=== PATIENT | male | born 1950 | race African-American/Black ===

== ENCOUNTER 2018-10-12 18:17 | Inpatient (IN) | payer MEDICARE, MEDICAID ==
[~2018-10-12] VITALS: Ht 177.8 cm; Wt 69.1 kg
--- NOTE | 2018-10-12 20:32 | NUR ---
NURSE NOTES: Patient brought into hospital from [facility]. Report taken from POOJA Grey. Admit report taken from EMS, Syd. Patient A&Ox4, on room air. Skin is intact, noted swelling in the Right calf, pain during ambulation. IV site c/d/i and patent. Patient home ventolin taken to pharmacy, Stated that left his other home medication in his vehicle which he currently does not have access too, will call his sister in the am to retrieve other home meds. Patient states that he is homeless, but does have family that he can get help from. Vitals are stable and patient is pleasant. Contacted MD for orders, awaiting response. Continue to monitor. Bed in lowest position, call light within reach.
[2018-10-12 20:40] VITALS: BP 144/89
[2018-10-12] MEDS ORDERED: Norco 5mg/325mg tab ORAL PRN (23:30)
[2018-10-13] VITALS: BP 122/72
[2018-10-13 04:00] VITALS: BP 129/69
--- NOTE | 2018-10-13 07:26 | NUR ---
HAND-OFF: Report given to POOJA Browne.
--- NOTE | 2018-10-13 07:30 | NUR ---
NURSE NOTES: WALKING ROUNDS DONE WITH OUTGOING RN.PATIENT AWAKE IN BED.QUESTIONS ANSWERED;NEEDS MET. DISCUSSED PLAN OF CARE FOR THE DAY. VERBALIZED UNDERSTANDING. CALL LIGHT WITHIN REACH.
[2018-10-13 07:32] LABS: BASOPHILS % (AUTO) 2.2 % (0.0-2.0); EOSINOPHILS % (AUTO) 5.4 % (0.0-3.0); HEMATOCRIT 39.7 % (42.0-52.0); LYMPHOCYTES % (AUTO) 24.5 % (20.0-45.0); MEAN CORPUSCULAR VOLUME 88 FL (80-99); MONOCYTES % (AUTO) 13.6 % (1.0-10.0); NEUTROPHILS % (AUTO) 54.4 % (45.0-75.0); PLATELET COUNT 359 K/UL (150-450); RED CELL DISTRIBUTION WIDTH 11.4 % (11.6-14.8); WHITE BLOOD COUNT 3.7 K/UL (4.8-10.8)
[2018-10-13 07:53] LABS: ALANINE AMINOTRANSFERASE 16 U/L (12-78); ALBUMIN/GLOBULIN RATIO 0.7 (1.0-2.7); ALKALINE PHOSPHATASE 86 U/L (46-116); ANION GAP 7 mmol/L (5-15); ASPARTATE AMINO TRANSFERASE 22 U/L (15-37); BILIRUBIN,TOTAL 0.4 MG/DL (0.2-1.0); BLOOD UREA NITROGEN 13 mg/dL (7-18); CALCIUM 9.1 MG/DL (8.5-10.1); CARBON DIOXIDE 28 MMOL/L (21-32); CHLORIDE 104 MMOL/L (98-107); CREATININE 1.2 MG/DL (0.55-1.30); PHOSPHORUS 3.3 MG/DL (2.5-4.9); SODIUM 139 MMOL/L (136-145)
[2018-10-13 08:00] VITALS: BP 121/75
[2018-10-13] MEDS ORDERED: Enoxaparin 30mg Inj SUBQ SCH (09:00)
[2018-10-13] MEDS ORDERED: Enoxaparin Sodium 300mg/3ml vial SUBQ SCH (11:00)
[2018-10-13 12:00] VITALS: BP 140/98
[2018-10-13] MEDS ORDERED: Promethazine/Codeine 5ml UD ORAL PRN (12:00)
--- NOTE | 2018-10-13 12:04 | Consultation ---
History of Present Illness General Date patient seen: Oct 13, 2018 Present Illness HPI 68 year old male with hx of COPD/asthma presented initially to [facility] with cc of SOB, cough, dyspnea and some discomfort in right calf. Pt was diagnosed to have right calf DVT and [place] [facility] [place]. Allergies: Coded Allergies: NO KNOWN ALLERGIES (Verified Allergy, Unknown, 10/12/18) Patient History Healthcare decision maker Resuscitation status Full Code Advanced Directive on File No Past Medical/Surgical History Past Medical/Surgical History: (1) History of asthma Review of Systems Constitutional: Reports: no symptoms Respiratory: Reports: shortness of breath, wheezing Physical Exam General Appearance: WD/WN, no apparent distress Lines, tubes and drains: peripheral HEENT: normocephalic, atraumatic Neck: non-tender, normal alignment Respiratory/Chest: chest wall non-tender, decreased breath sounds Cardiovascular/Chest: normal peripheral pulses, normal rate Abdomen: normal bowel sounds, non tender Genitourinary/Rectal: normal genital exam Extremities: normal range of motion, non-tender Skin Exam: normal pigmentation 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 Last 24 Hour Vital Signs Date Time Temp Pulse Resp B/P (MAP) Pulse Ox O2 Delivery O2 Flow Rate FiO2 10/13/18 09:00 Room Air 10/13/18 08:00 98.2 94 19 121/75 (90) 94 10/13/18 04:00 98.1 93 17 129/69 (89) 94 10/13/18 00:00 98.2 90 18 122/72 (89) 94 10/12/18 23:46 Room Air 10/12/18 22:12 Room Air 10/12/18 20:40 97.4 94 16 144/89 (107) 96 Intake and Output 10/12/18 10/13/18 19:00 07:00 Intake Total 680 ml Balance 680 ml Intake Oral 480 ml Other 200 ml # Voids 3 Laboratory Tests Test 10/13/18 06:38 White Blood Count 3.7 K/UL (4.8-10.8) L Red Blood Count 4.50 M/UL (4.70-6.10) L Hemoglobin 14.0 G/DL (14.2-18.0) L Hematocrit 39.7 % (42.0-52.0) L Mean Corpuscular Volume 88 FL (80-99) Mean Corpuscular Hemoglobin 31.1 PG (27.0-31.0) H Mean Corpuscular Hemoglobin Concent 35.2 G/DL (32.0-36.0) Red Cell Distribution Width 11.4 % (11.6-14.8) L Platelet Count 359 K/UL (150-450) Mean Platelet Volume 5.7 FL (6.5-10.1) L Neutrophils (%) (Auto) 54.4 % (45.0-75.0) Lymphocytes (%) (Auto) 24.5 % (20.0-45.0) Monocytes (%) (Auto) 13.6 % (1.0-10.0) H Eosinophils (%) (Auto) 5.4 % (0.0-3.0) H Basophils (%) (Auto) 2.2 % (0.0-2.0) H Prothrombin Time 10.5 SEC (9.30-11.50) Prothromb Time International Ratio 1.0 (0.9-1.1) Activated Partial Thromboplast Time 33 SEC (23-33) Sodium Level 139 MMOL/L (136-145) Potassium Level 4.0 MMOL/L (3.5-5.1) Chloride Level 104 MMOL/L (98-107) Carbon Dioxide Level 28 MMOL/L (21-32) Anion Gap 7 mmol/L (5-15) Blood Urea Nitrogen 13 mg/dL (7-18) Creatinine 1.2 MG/DL (0.55-1.30) Estimat Glomerular Filtration Rate > 60 mL/min (>60) Glucose Level 95 MG/DL (74-106) Calcium Level 9.1 MG/DL (8.5-10.1) Phosphorus Level 3.3 MG/DL (2.5-4.9) Magnesium Level 2.0 MG/DL (1.8-2.4) Total Bilirubin 0.4 MG/DL (0.2-1.0) Aspartate Amino Transf (AST/SGOT) 22 U/L (15-37) Alanine Aminotransferase (ALT/SGPT) 16 U/L (12-78) Alkaline Phosphatase 86 U/L (46-116) Total Protein 7.1 G/DL (6.4-8.2) Albumin 3.0 G/DL (3.4-5.0) L Globulin 4.1 g/dL Albumin/Globulin Ratio 0.7 (1.0-2.7) L Height (Feet): 5 Height (Inches): 10.00 Weight (Pounds): 152 Medications Current Medications Medications (Trade) Dose Ordered Sig/Brenda Route PRN Reason Start Time Stop Time Status Last Admin Dose Admin Acetaminophen (Tylenol) 650 mg Q6H PRN ORAL Mild Pain/Temp > 100.5 10/12/18 23:30 11/11/18 23:29 Acetaminophen/ Hydrocodone Bitart ([place] 5/325) 1 tab Q6H PRN ORAL Severe Pain (Pain Scale 7-10) 10/12/18 23:30 10/19/18 23:29 Albuterol/ Ipratropium (Albuterol/ Ipratropium) 3 ml Q6HRT HHN 10/13/18 13:00 10/18/18 12:59 UNV Atorvastatin Calcium (Lipitor) 40 mg BEDTIME ORAL 10/13/18 21:00 11/12/18 20:59 Enoxaparin Sodium (Lovenox) 70 mg Q12HR SUBQ 10/13/18 11:00 11/12/18 10:59 10/13/18 11:08 Promethazine HCl/ Codeine (Phenergan with Codeine) 5 ml Q4H PRN ORAL For Cough 10/13/18 12:00 11/12/18 11:59 UNV Theophylline (Selvin-Dur) 100 mg EVERY 12 HOURS ORAL 10/13/18 21:00 11/12/18 20:59 UNV Assessment/Plan Problem List: (1) Acute asthma exacerbation ICD Codes: J45.901 - Unspecified asthma with (acute) exacerbation SNOMED: 857218080 (2) Acute bronchitis ICD Codes: J20.9 - Acute bronchitis, unspecified SNOMED: 23089226 Assessment/Plan respiratory treatment short course of steroids and abx check sputum on Levonox Jo-Ann Roberts MD Oct 13, 2018 12:04
--- NOTE | 2018-10-13 12:20 | NUR ---
CASE MANAGEMENT: REVIEW 68/M BIBA FROM HOME CC: SOB . RIGHT LEG PAIN. SI: ASTHMA EXACERBATION . ACUTE DVT T 97.4 HR 94 RR 16 BP 114/89 SAT 94% ROOM AIR WBC 3.7 H/H 14.0/39.7 IS: ALBUTEROL HHN X1 LOVENOX SQ X1 INTERQUAL CRITERIA MET: PATIENT ADMITTED TO MED/SURG UNIT 10/12/2018 DCP: PATIENT IS FROM HOME
[2018-10-13] MEDS: Solu-MEDROL 40mg Inj IVP SCH ×3 (14:00→21:17)
[2018-10-13 16:00] VITALS: BP 112/76
--- NOTE | 2018-10-13 17:41 | History & Physical ---
History and Physical History & Physicial Dictated for Int Med-Dr Cruz no. [id number]. Mauyr Hart MD Oct 13, 2018 17:41
--- NOTE | 2018-10-13 18:30 | NUR ---
NURSE NOTES: PATIENT REMAINS STABLE. BILATERAL LEG CIRCUMFERENCE OBTAINED. NOTED LEFT LEG 11 INCHES IN CIRCUMFERENCE. NOTED RIGHT LEG 12 INCHES( 31 CM). PATIENT DENIES PAIN UPON TOUCH. NO REDNESS OR WARMNESS NOTED.
[2018-10-13] MEDS: Albuterol/Ipratropium 3ml neb HHN SCH (19:00)
--- NOTE | 2018-10-13 19:12 | NUR ---
HAND-OFF: Report given to HAILE BRICE RN.
--- NOTE | 2018-10-13 19:15 | NUR ---
NURSE NOTES: Report taken from POOJA Browne. Patient is alert and oriented in bed. On room air, no signs of distress. Does state that he gets some sharp pain when he ambulates, but nothing at rest. He refused his breathing treatment, states that he feels like he does not need them. RN went over risks and benefits of treatment. Vitals are stable. IV site c/d/i. Calf circumference is Right- 31cm and Left 29cm. Continue to monitor. Call light within reach, bed in lowest position.
[2018-10-13] MEDS: Xarelto 15mg tab ORAL SCH (19:28)
[2018-10-13 20:00] VITALS: BP 114/73
[2018-10-13] MEDS: Theophylline ER 100mg ORAL SCH (21:17)
[2018-10-13] MEDS: Atorvastatin 20mg tab ORAL SCH (21:20)
--- NOTE | 2018-10-13 22:29 | History and Physical Report ---
DATE OF ADMISSION: 10/13/2018 CHIEF COMPLAINT: The patient is a 68-year-old -Liber[place] male, presents with complaint of right lower extremity pain and swelling. HISTORY OF PRESENT ILLNESS: Began on 10/10/2018. The patient states he felt like he had a cramp on the right calf. The patient states the pain continued. The patient noticed increased pain and swelling of the right lower extremity. The patient initially presented to [facility] emergency room. The patient was found to have acute deep venous thrombosis of the right popliteal to right posterior tibial vein. The patient is transferred to [facility] for insurance purposes. The patient is admitted with acute deep venous thrombosis of the right calf. PAST MEDICAL HISTORY: Significant for: 1. Asthma. 2. History of prostate cancer, status post radiation therapy. PAST SURGICAL HISTORY: The patient denies. CURRENT MEDICATIONS: The patient denies. ALLERGIES: No known drug allergies. SOCIAL HISTORY: The patient is a . The patient's girlfriend in January of 2018. The patient is currently homeless, living in his car. The patient admits to on and off tobacco use. The patient admits to alcohol use of at least one beer daily. REVIEW OF SYSTEMS: CONSTITUTIONAL: The patient denies weight loss or gain. The patient denies fevers or chills. HEENT: The patient has throat pain. The patient has headache. CARDIOVASCULAR: The patient denies palpitations or chest pain. CHEST: The patient denies wheeze or shortness of breath. ABDOMINAL: The patient denies nausea, vomiting, diarrhea, or constipation. GENITOURINARY: The patient denies dysuria or increased frequency of urination. NEUROMUSCULAR: The patient denies seizures or generalized weakness. The patient does complain of right lower extremity pain and swelling as above. PHYSICAL EXAMINATION: VITAL SIGNS: Temperature 98.2, respirations 18, pulse 90, and blood pressure 122/72. GENERAL: The patient is well-developed and well-nourished -Liberian male, in no apparent distress. HEENT: Eyes, pupils are equal and responsive to light and accommodation. Extraocular movements are intact. NECK: Supple without lymphadenopathy. CHEST: Lungs are clear to auscultation bilaterally without wheezes or rales. CARDIOVASCULAR: Regular rhythm and rate. S1 and S2 are normal without murmurs, rubs, or gallops. ABDOMEN: Soft, nontender, and nondistended with positive bowel sounds. No evidence of hepatosplenomegaly. Currently, no rebound or guarding noted. EXTREMITIES: Right lower extremity is swollen when compared to left. There is no erythema noted. NEUROLOGIC: Cranial nerves II to XII are grossly intact without focal deficits. Motor strength is 5/5 bilaterally. Deep tendon reflexes are 2+ plantar. LABORATORY STUDIES: WBC 5.2, hemoglobin 14.5, hematocrit 40.7, and platelets 409,000. Sodium 137, potassium 4.5, chloride 100, CO2 26, BUN 13, creatinine 1.22, and glucose 96. Venous duplex Doppler of the right lower extremity showed acute deep venous thrombosis from the right popliteal to the right posterior tibial vein. ASSESSMENT: This is a 68-year-old -Liberian male. 1. Right lower extremity pain and swelling. 2. Deep venous thrombosis to the right popliteal to right posterior tibial vein. 3. Asthma. 4. History of prostate cancer. TREATMENT: 1. Deep venous thrombosis of right popliteal to right posterior tibial vein. The patient has been started on Lovenox. This will be transitioned to Xarelto. A Hematology/Oncology consultation has been obtained with Dr. Boswell. 2. History of prostate cancer, status post radiation therapy. 3. Asthma. Continue albuterol metered-dose inhaler two puffs p.o. q.i.d. p.r.n. Maury Hart M.D. DR: LUCY JOB#: [id number] CC:
[2018-10-14] VITALS: BP 107/78
[2018-10-14] MEDS: Albuterol/Ipratropium 3ml neb HHN SCH ×3 (00:38→19:00)
[2018-10-14 04:00] VITALS: BP 110/75
[2018-10-14] MEDS: Solu-MEDROL 40mg Inj IVP SCH ×3 (06:24→21:45)
[2018-10-14 06:25] LABS: BASOPHILS % (AUTO) 1.1 % (0.0-2.0); HEMATOCRIT 41.4 % (42.0-52.0); HEMOGLOBIN 14.6 G/DL (14.2-18.0); LYMPHOCYTES % (AUTO) 12.5 % (20.0-45.0); MEAN CORPUSCULAR VOLUME 89 FL (80-99); MONOCYTES % (AUTO) 6.7 % (1.0-10.0); NEUTROPHILS % (AUTO) 79.7 % (45.0-75.0); PLATELET COUNT 448 K/UL (150-450); RED BLOOD COUNT 4.65 M/UL (4.70-6.10); RED CELL DISTRIBUTION WIDTH 10.9 % (11.6-14.8); WHITE BLOOD COUNT 5.5 K/UL (4.8-10.8)
[2018-10-14 06:54] LABS: ANION GAP 5 mmol/L (5-15); BLOOD UREA NITROGEN 17 mg/dL (7-18); CALCIUM 9.7 MG/DL (8.5-10.1); CARBON DIOXIDE 30 MMOL/L (21-32); CHLORIDE 105 MMOL/L (98-107); CREATININE 1.3 MG/DL (0.55-1.30); POTASSIUM 4.6 MMOL/L (3.5-5.1); SODIUM 140 MMOL/L (136-145)
--- NOTE | 2018-10-14 07:43 | NUR ---
HAND-OFF: Report given to POOJA Hills.
--- NOTE | 2018-10-14 07:53 | NUR ---
NURSE NOTES: Patient is awake and able to verbalize needs. Patient is sitting up in bed and ate 100% of his breakfast. Patient is stable, no s/s distress at this time. Denies pain or SOB. All safety measures provided. Patient is in bed in locked position and call light within reach. WIll continue to monitor.
[2018-10-14 08:00] VITALS: BP 129/75
[2018-10-14] MEDS: Theophylline ER 100mg ORAL SCH ×2 (08:51→20:17)
[2018-10-14] MEDS: Xarelto 15mg tab ORAL SCH ×2 (08:51→18:16)
--- NOTE | 2018-10-14 10:38 | NUR ---
REHAB MED PT NOTE CONSULT RECEIVED, MAXIME COMPLTED, PATIENT WILL BENEFIT FROM SKILLED PT DURING STAY FOR RETURN TO PLOF. RECOMMEND SNF VS PRIOR LOCATION. PLAN OF CARE INITIATED. WESTLEY ANTONIO PT DPT Addendum: 10/14/18 at 1039 by WESTLEY ANTONIO PT Amended: Links added.
[2018-10-14 11:43] VITALS: BP 129/85
--- NOTE | 2018-10-14 12:36 | Internal Med Progress Note ---
Subjective Date of Service: Oct 14, 2018 Physician Name Maury Hart Attending Physician Paras Cruz MD Current Medications Medications (Trade) Dose Ordered Sig/Brenda Route PRN Reason Start Time Stop Time Status Last Admin Dose Admin Acetaminophen (Tylenol) 650 mg Q6H PRN ORAL Mild Pain/Temp > 100.5 10/12/18 23:30 11/11/18 23:29 Acetaminophen/ Hydrocodone Bitart ([place] 5/325) 1 tab Q6H PRN ORAL Severe Pain (Pain Scale 7-10) 10/12/18 23:30 10/19/18 23:29 Albuterol/ Ipratropium (Albuterol/ Ipratropium) 3 ml Q6HRT HHN 10/13/18 13:00 10/18/18 12:59 Atorvastatin Calcium (Lipitor) 40 mg BEDTIME ORAL 10/13/18 21:00 11/12/18 20:59 10/13/18 21:20 Levofloxacin 100 ml @ 100 mls/hr Q24H IVPB 10/13/18 14:00 10/20/18 13:59 10/13/18 14:12 Methylprednisolone Sodium Succinate (Solu-MEDROL) 40 mg EVERY 8 HOURS IVP 10/13/18 14:00 11/12/18 13:59 10/14/18 06:24 Promethazine HCl/ Codeine (Phenergan with Codeine) 5 ml Q4H PRN ORAL For Cough 10/13/18 12:00 11/12/18 11:59 Rivaroxaban (Xarelto) 15 mg BID ORAL 10/13/18 18:30 11/03/18 18:29 10/14/18 08:51 Rivaroxaban (Xarelto) 20 mg DAILY ORAL 11/04/18 09:00 01/27/19 08:59 Theophylline (Selvin-Dur) 100 mg EVERY 12 HOURS ORAL 10/13/18 21:00 11/12/18 20:59 10/14/18 08:51 Allergies: Coded Allergies: NO KNOWN ALLERGIES (Verified Allergy, Unknown, 10/12/18) ROS Limited/Unobtainable: No Constitutional: Reports: no symptoms HEENT: Reports: no symptoms Cardiovascular: Reports: no symptoms Respiratory: Reports: no symptoms Gastrointestinal/Abdominal: Reports: no symptoms, poor appetite Genitourinary: Reports: no symptoms Neurologic/Psychiatric: Reports: no symptoms Subjective 68 YO M admitted with right leg pain. Now acute DVT. Cover for Int Elliot-Dr Cruz. Objective Last Vital Signs Date Time Temp Pulse Resp B/P (MAP) Pulse Ox O2 Delivery O2 Flow Rate FiO2 10/14/18 11:43 97.9 93 20 129/85 (100) 94 10/14/18 08:16 Room Air 10/14/18 00:39 21 Laboratory Tests Test 10/14/18 06:00 White Blood Count 5.5 K/UL (4.8-10.8) Red Blood Count 4.65 M/UL (4.70-6.10) L Hemoglobin 14.6 G/DL (14.2-18.0) Hematocrit 41.4 % (42.0-52.0) L Mean Corpuscular Volume 89 FL (80-99) Mean Corpuscular Hemoglobin 31.4 PG (27.0-31.0) H Mean Corpuscular Hemoglobin Concent 35.2 G/DL (32.0-36.0) Red Cell Distribution Width 10.9 % (11.6-14.8) L Platelet Count 448 K/UL (150-450) Mean Platelet Volume 5.6 FL (6.5-10.1) L Neutrophils (%) (Auto) 79.7 % (45.0-75.0) H Lymphocytes (%) (Auto) 12.5 % (20.0-45.0) L Monocytes (%) (Auto) 6.7 % (1.0-10.0) Eosinophils (%) (Auto) 0.0 % (0.0-3.0) Basophils (%) (Auto) 1.1 % (0.0-2.0) Sodium Level 140 MMOL/L (136-145) Potassium Level 4.6 MMOL/L (3.5-5.1) Chloride Level 105 MMOL/L (98-107) Carbon Dioxide Level 30 MMOL/L (21-32) Anion Gap 5 mmol/L (5-15) Blood Urea Nitrogen 17 mg/dL (7-18) Creatinine 1.3 MG/DL (0.55-1.30) Estimat Glomerular Filtration Rate > 60 mL/min (>60) Glucose Level 140 MG/DL (74-106) H Calcium Level 9.7 MG/DL (8.5-10.1) Intake and Output 10/13/18 10/14/18 18:59 06:59 Intake Total 800 ml Balance 800 ml Intake Oral 800 ml # Voids 3 Objective PHYSICAL EXAMINATION: GENERAL: The patient is well-developed and well-nourished -Singaporean male, in no apparent distress. HEENT: Eyes, pupils are equal and responsive to light and accommodation. Extraocular movements are intact. NECK: Supple without lymphadenopathy. CHEST: Lungs are clear to auscultation bilaterally without wheezes or rales. CARDIOVASCULAR: Regular rhythm and rate. S1 and S2 are normal without murmurs, rubs, or gallops. ABDOMEN: Soft, nontender, and nondistended with positive bowel sounds. No evidence of hepatosplenomegaly. Currently, no rebound or guarding noted. EXTREMITIES: Right lower extremity is swollen when compared to left. There is no erythema noted. NEUROLOGIC: Cranial nerves II to XII are grossly intact without focal deficits. Motor strength is 5/5 bilaterally. Deep tendon reflexes are 2+ plantar. Assessment/Plan Problem List: (1) Prostate cancer Assessment & Plan: S/P radiation tx (2) Leg pain, right (3) Acute thromboembolism of deep veins of right calf Assessment & Plan: D/C lovenox; Continue xarelto (4) Acute asthma exacerbation Assessment & Plan: See pulmonary note. (5) Acute bronchitis Assessment & Plan: Continue levaquin per pulmonary Status: not improved Maury Hart MD Oct 14, 2018 12:36
--- NOTE | 2018-10-14 12:41 | Diagnostic Imaging Report ---
APPROVED REPORT CPT Code: 52427 Present Symptoms Comments: Swelling RIGHT LEG: Venous imaging reveals acute thrombus in the popliteal vein and calf veins (posterior and peroneal tibial). Imaging also reveals patency of the common femoral, and calf vein (anterior tibial). The greater saphenous vein is within normal limits. LEFT LEG: Venous imaging reveals a patent deep venous system. There is no evidence of thrombus within the femoral, popliteal or tibial segments. The greater saphenous vein is also within normal limits. Doppler indicates normal spontaneous flow within these segments. POOJA Browne was notified of abnormal results at 1510 hours.
--- NOTE | 2018-10-14 13:16 | Pulmonology Progress Note ---
Assessment/Plan Problems: (1) Acute asthma exacerbation (2) Acute bronchitis Assessment/Plan improving respiratory treatment check electrolytes pain management check sputum titrate fio2 to sat of 92% Subjective ROS Limited/Unobtainable: No Constitutional: Reports: no symptoms HEENT: Repors: no symptoms Respiratory: Reports: no symptoms Allergies: Coded Allergies: NO KNOWN ALLERGIES (Verified Allergy, Unknown, 10/12/18) Objective Last 24 Hour Vital Signs Date Time Temp Pulse Resp B/P (MAP) Pulse Ox O2 Delivery O2 Flow Rate FiO2 10/14/18 11:43 97.9 93 20 129/85 (100) 94 10/14/18 08:16 Room Air 10/14/18 08:00 98.3 94 18 129/75 (93) 97 10/14/18 07:00 Room Air 21 10/14/18 07:00 Room Air 21 10/14/18 04:00 97.3 88 18 110/75 (87) 95 10/14/18 00:39 Room Air 21 10/14/18 00:38 20 Room Air 21 10/14/18 00:00 97.3 84 18 107/78 (88) 98 10/13/18 21:00 Room Air 10/13/18 20:28 102 20 Room Air 21 10/13/18 20:00 Room Air 21 10/13/18 20:00 97.6 97 18 114/73 (87) 94 10/13/18 20:00 20 Room Air 21 10/13/18 16:00 98.4 91 18 112/76 (88) 96 Intake and Output 10/13/18 10/14/18 18:59 06:59 Intake Total 800 ml Balance 800 ml Intake Oral 800 ml # Voids 3 Objective General Appearance: WD/WN, no apparent distress Lines, tubes and drains: peripheral HEENT: normocephalic, atraumatic Neck: non-tender, normal alignment Respiratory/Chest: chest wall non-tender, decreased breath sounds Cardiovascular/Chest: normal peripheral pulses, normal rate Abdomen: normal bowel sounds, non tender Genitourinary/Rectal: normal genital exam Extremities: normal range of motion, non-tender Skin Exam: normal pigmentation 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 Laboratory Tests 10/14/18 06:00: White Blood Count 5.5, Red Blood Count 4.65L, Hemoglobin 14.6, Hematocrit 41.4L , Mean Corpuscular Volume 89, Mean Corpuscular Hemoglobin 31.4H, Mean Corpuscular Hemoglobin Concent 35.2, Red Cell Distribution Width 10.9L, Platelet Count 448, Mean Platelet Volume 5.6L, Neutrophils (%) (Auto) 79.7H, Lymphocytes (%) (Auto) 12.5L, Monocytes (%) (Auto) 6.7, Eosinophils (%) (Auto) 0.0, Basophils (%) (Auto) 1.1, Sodium Level 140, Potassium Level 4.6, Chloride Level 105, Carbon Dioxide Level 30, Anion Gap 5, Blood Urea Nitrogen 17, Creatinine 1.3, Estimat Glomerular Filtration Rate > 60, Glucose Level 140H, Calcium Level 9.7 Current Medications Medications (Trade) Dose Ordered Sig/Brenda Route PRN Reason Start Time Stop Time Status Last Admin Dose Admin Acetaminophen (Tylenol) 650 mg Q6H PRN ORAL Mild Pain/Temp > 100.5 10/12/18 23:30 11/11/18 23:29 Acetaminophen/ Hydrocodone Bitart ([place] 5/325) 1 tab Q6H PRN ORAL Severe Pain (Pain Scale 7-10) 10/12/18 23:30 10/19/18 23:29 Albuterol/ Ipratropium (Albuterol/ Ipratropium) 3 ml Q6HRT HHN 10/13/18 13:00 10/18/18 12:59 Atorvastatin Calcium (Lipitor) 40 mg BEDTIME ORAL 10/13/18 21:00 11/12/18 20:59 10/13/18 21:20 Levofloxacin 100 ml @ 100 mls/hr Q24H IVPB 10/13/18 14:00 10/20/18 13:59 10/13/18 14:12 Methylprednisolone Sodium Succinate (Solu-MEDROL) 40 mg EVERY 8 HOURS IVP 10/13/18 14:00 11/12/18 13:59 10/14/18 06:24 Promethazine HCl/ Codeine (Phenergan with Codeine) 5 ml Q4H PRN ORAL For Cough 10/13/18 12:00 11/12/18 11:59 Rivaroxaban (Xarelto) 15 mg BID ORAL 10/13/18 18:30 11/03/18 18:29 10/14/18 08:51 Rivaroxaban (Xarelto) 20 mg DAILY ORAL 11/04/18 09:00 01/27/19 08:59 Theophylline (Selvin-Dur) 100 mg EVERY 12 HOURS ORAL 10/13/18 21:00 11/12/18 20:59 10/14/18 08:51 Jo-Ann Roberts MD Oct 14, 2018 13:16
[2018-10-14 16:00] VITALS: BP 127/73
--- NOTE | 2018-10-14 16:31 | NUR ---
Social Service Note MAMTA met with patient to assess for homelessness. Patient is alert, oriented and verbally responsive. Patient states he recently became homeless and has been sleeping in his car for about 5 days prior to admission. Patient states due to the recent passing of his girlfriend and brother he could no longer afford to living in the apartment in which they shared. Patient states he is to proud to stay with his sister Esther [phone] even though she has opened her home to him. Patient's car is currently park at her house. Patient states he receives close to $1000 a month. 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 SW provided patient information on [facility]. SW assisted patient in completing the [facility] referral form for Bridge/interim housing. Referral emailed to [email or web address] and christopher dixon at [facility]. MAMTA received confirmation email was received. MAMTA discussed with Dr. Cruz, possible short term placement. Patient states he had an PMD out of [facility] when he was living in [place] with his girlfriend. Patient [place] open to [place]. Will continue to monitor and assist.
--- NOTE | 2018-10-14 19:31 | NUR ---
HAND-OFF: Report given to Wilfredo PATTON. Patient is stable.
--- NOTE | 2018-10-14 19:45 | NUR ---
NURSE NOTES: Received report from POOJA Zuniga and rounds done. Received pt lying in bed, A&OX4, denies pain, no SOB, no distress noted. IV R AC #20 patent and intact. Bed in low position and locked, side rails up x 2, call light within reach. Will continue to monitor.
[2018-10-14 20:00] VITALS: BP 131/81
[2018-10-14] MEDS: Atorvastatin 20mg tab ORAL SCH (20:17)
--- NOTE | 2018-10-14 21:46 | Consultation ---
History of Present Illness Present Illness HPI 68-year-old -Welsh male, presents with complaint of right lower extremity pain and swelling. the pt has anxiety and insomnia. the pt stated that he has pain and decrease appetite. no si.hi Allergies: Coded Allergies: NO KNOWN ALLERGIES (Verified Allergy, Unknown, 10/12/18) Medication History Scheduled Atorvastatin Calcium* (Lipitor*), 40 MG ORAL BEDTIME Ipratropium/Albuterol Sulfate (DuoNeb 0.5-3(2.5)mg/3ml), 3 ML HHN Q6HRT Levofloxacin* (Levaquin*), 500 MG ORAL DAILY Methylprednisolone (Methylprednisolone*), 4 MG ORAL DIRECTED Rivaroxaban (Xarelto), 15 MG ORAL BID Theophylline (Theodur*), 100 MG ORAL EVERY 12 HOURS Scheduled PRN Acetaminophen* (Acetaminophen 325MG Tablet*), 650 MG ORAL Q6H PRN Hydrocodone Bit/Acetaminophen 5-325* ([place] 5-325*), 1 TAB ORAL Q6H PRN Patient History History Provided By: Patient, Medical Record, PMD Healthcare decision maker Resuscitation status Full Code Advanced Directive on File No Past Medical/Surgical History Past Medical/Surgical History: (1) History of asthma (2) Acute asthma exacerbation (3) Acute bronchitis (4) Prostate cancer (5) Leg pain, right (6) Acute thromboembolism of deep veins of right calf Review of Systems Psychiatric: Reports: prior hx, anxiety, depressed feelings, emotional problems Physical Exam General Appearance: alert, thin Neurologic: oriented x 3, responsive, depressed affect Last 24 Hour Vital Signs Date Time Temp Pulse Resp B/P (MAP) Pulse Ox O2 Delivery O2 Flow Rate FiO2 10/14/18 21:00 Room Air 10/14/18 20:00 98.1 100 19 131/81 (98) 97 10/14/18 19:00 Room Air 21 10/14/18 19:00 Room Air 21 10/14/18 16:00 97.8 91 20 127/73 (91) 100 10/14/18 13:00 Room Air 21 10/14/18 13:00 Room Air 21 10/14/18 11:43 97.9 93 20 129/85 (100) 94 10/14/18 08:16 Room Air 10/14/18 08:00 98.3 94 18 129/75 (93) 97 10/14/18 07:00 Room Air 21 10/14/18 07:00 Room Air 21 10/14/18 04:00 97.3 88 18 110/75 (87) 95 10/14/18 00:39 Room Air 21 10/14/18 00:38 20 Room Air 21 10/14/18 00:00 97.3 84 18 107/78 (88) 98 Intake and Output 10/13/18 10/14/18 19:00 07:00 Intake Total 800 ml Balance 800 ml Intake Oral 800 ml # Voids 3 Laboratory Tests Test 10/14/18 06:00 White Blood Count 5.5 K/UL (4.8-10.8) Red Blood Count 4.65 M/UL (4.70-6.10) L Hemoglobin 14.6 G/DL (14.2-18.0) Hematocrit 41.4 % (42.0-52.0) L Mean Corpuscular Volume 89 FL (80-99) Mean Corpuscular Hemoglobin 31.4 PG (27.0-31.0) H Mean Corpuscular Hemoglobin Concent 35.2 G/DL (32.0-36.0) Red Cell Distribution Width 10.9 % (11.6-14.8) L Platelet Count 448 K/UL (150-450) Mean Platelet Volume 5.6 FL (6.5-10.1) L Neutrophils (%) (Auto) 79.7 % (45.0-75.0) H Lymphocytes (%) (Auto) 12.5 % (20.0-45.0) L Monocytes (%) (Auto) 6.7 % (1.0-10.0) Eosinophils (%) (Auto) 0.0 % (0.0-3.0) Basophils (%) (Auto) 1.1 % (0.0-2.0) Sodium Level 140 MMOL/L (136-145) Potassium Level 4.6 MMOL/L (3.5-5.1) Chloride Level 105 MMOL/L (98-107) Carbon Dioxide Level 30 MMOL/L (21-32) Anion Gap 5 mmol/L (5-15) Blood Urea Nitrogen 17 mg/dL (7-18) Creatinine 1.3 MG/DL (0.55-1.30) Estimat Glomerular Filtration Rate > 60 mL/min (>60) Glucose Level 140 MG/DL (74-106) H Calcium Level 9.7 MG/DL (8.5-10.1) Height (Feet): 5 Height (Inches): 10.00 Weight (Pounds): 152 Medications Current Medications Medications (Trade) Dose Ordered Sig/Brenda Route PRN Reason Start Time Stop Time Status Last Admin Dose Admin Acetaminophen (Tylenol) 650 mg Q6H PRN ORAL Mild Pain/Temp > 100.5 10/12/18 23:30 11/11/18 23:29 Acetaminophen/ Hydrocodone Bitart ([place] 5/325) 1 tab Q6H PRN ORAL Severe Pain (Pain Scale 7-10) 10/12/18 23:30 10/19/18 23:29 Albuterol/ Ipratropium (Albuterol/ Ipratropium) 3 ml Q6HRT HHN 10/13/18 13:00 10/18/18 12:59 Atorvastatin Calcium (Lipitor) 40 mg BEDTIME ORAL 10/13/18 21:00 11/12/18 20:59 10/14/18 20:17 Levofloxacin 100 ml @ 100 mls/hr Q24H IVPB 10/13/18 14:00 10/20/18 13:59 10/14/18 14:25 Methylprednisolone Sodium Succinate (Solu-MEDROL) 40 mg EVERY 8 HOURS IVP 10/13/18 14:00 11/12/18 13:59 10/14/18 14:25 Promethazine HCl/ Codeine (Phenergan with Codeine) 5 ml Q4H PRN ORAL For Cough 10/13/18 12:00 11/12/18 11:59 Rivaroxaban (Xarelto) 15 mg BID ORAL 10/13/18 18:30 11/03/18 18:29 10/14/18 18:16 Rivaroxaban (Xarelto) 20 mg DAILY ORAL 11/04/18 09:00 01/27/19 08:59 Theophylline (Selvin-Dur) 100 mg EVERY 12 HOURS ORAL 10/13/18 21:00 11/12/18 20:59 10/14/18 20:17 Assessment/Plan Assessment/Plan anxiety do insomnia -ativan prn -ambien Naty Alarcon MD Oct 14, 2018 21:46
[2018-10-15] VITALS: BP 113/71
[2018-10-15] MEDS: Albuterol/Ipratropium 3ml neb HHN SCH ×3 (00:07→13:00)
[2018-10-15 04:00] VITALS: BP 136/84
[2018-10-15] MEDS: Solu-MEDROL 40mg Inj IVP SCH ×2 (05:47→13:23)
--- NOTE | 2018-10-15 07:26 | NUR ---
HAND-OFF: Report given to POOJA Fox. Pt in stable condition.
[2018-10-15 07:31] LABS: HEMATOCRIT 38.3 % (42.0-52.0); HEMOGLOBIN 13.5 G/DL (14.2-18.0); MEAN CORPUSCULAR VOLUME 89 FL (80-99); PLATELET COUNT 462 K/UL (150-450); RED CELL DISTRIBUTION WIDTH 11.1 % (11.6-14.8); WHITE BLOOD COUNT 9.9 K/UL (4.8-10.8)
[2018-10-15 07:49] LABS: ANION GAP 8 mmol/L (5-15); BLOOD UREA NITROGEN 15 mg/dL (7-18); CALCIUM 9.1 MG/DL (8.5-10.1); CARBON DIOXIDE 27 MMOL/L (21-32); CHLORIDE 105 MMOL/L (98-107); CREATININE 1.1 MG/DL (0.55-1.30); POTASSIUM 4.1 MMOL/L (3.5-5.1); SODIUM 140 MMOL/L (136-145)
--- NOTE | 2018-10-15 07:51 | NUR ---
RESPIRATORY NOTE: Pt refused resp. breathing tx. RNRuddy notified. pt states he wants to wait until he feels an asthma attack for breathing tx. No resp distress noted when asked and checked. Will follow up during afternoon rounds.
[2018-10-15 08:00] VITALS: BP 133/81
--- NOTE | 2018-10-15 08:00 | NUR ---
NURSE NOTES: Report received from outgoing RN, rounds made. Patient alert, oriented x4, calm/pleasant. Sitting upright in bed. RAC heplock intact. Mild pain to right calf, 3/10, denies need for pain medication at this time. Denies NV, tolerating breakfast. Vitals stable. Respirations even, no SOB, lungs clear, no cough. Call light within reach. Will continue to monitor.
[2018-10-15] MEDS: Xarelto 15mg tab ORAL SCH ×2 (08:16→18:03)
[2018-10-15] MEDS: Theophylline ER 100mg ORAL SCH (08:17)
[2018-10-15 12:00] VITALS: BP 148/92
--- NOTE | 2018-10-15 13:02 | NUR ---
RESPIRATORY NOTE: Pt again refused breathing tx, RN will be notified. No resp distress seen at this time.
--- NOTE | 2018-10-15 14:24 | Pulmonology Progress Note ---
Assessment/Plan Problems: (1) Acute asthma exacerbation (2) Acute bronchitis Assessment/Plan improving respiratory treatment check electrolytes pain management check sputum titrate fio2 to sat of 92% Subjective Allergies: Coded Allergies: NO KNOWN ALLERGIES (Verified Allergy, Unknown, 10/12/18) Objective Last 24 Hour Vital Signs Date Time Temp Pulse Resp B/P (MAP) Pulse Ox O2 Delivery O2 Flow Rate FiO2 10/15/18 13:01 Room Air 21 10/15/18 13:01 Room Air 21 10/15/18 09:00 Room Air 10/15/18 08:00 97.7 93 18 133/81 (98) 97 10/15/18 07:47 84 20 95 Room Air 21 10/15/18 07:47 Room Air 21 10/15/18 04:00 98.4 81 19 136/84 (101) 95 10/15/18 00:07 Room Air 21 10/15/18 00:07 Room Air 21 10/15/18 00:00 97.7 84 18 113/71 (85) 95 10/14/18 21:00 Room Air 10/14/18 20:00 98.1 100 19 131/81 (98) 97 10/14/18 19:00 Room Air 21 10/14/18 19:00 Room Air 21 10/14/18 16:00 97.8 91 20 127/73 (91) 100 Intake and Output 10/14/18 10/15/18 18:59 06:59 Intake Total 1255 ml 200 ml Balance 1255 ml 200 ml Intake Oral 1255 ml 100 ml IV Total 100 ml # Voids 3 Objective General Appearance: WD/WN, no apparent distress Lines, tubes and drains: peripheral HEENT: normocephalic, atraumatic Neck: non-tender, normal alignment Respiratory/Chest: chest wall non-tender, decreased breath sounds Cardiovascular/Chest: normal peripheral pulses, normal rate Abdomen: normal bowel sounds, non tender Genitourinary/Rectal: normal genital exam Extremities: normal range of motion, non-tender Skin Exam: normal pigmentation Neurologic: remelter II-XII grossly normal Microbiology Date/Time Source Procedure Growth Status 10/13/18 15:55 Nasal Nares Left MRSA Culture - Final NO METHICILLIN RESISTANT STAPH AUREUS... Complete 10/13/18 15:55 Rectum VRE Culture - Final NO VANCOMYCIN RESISTANT ENTEROCOCCUS ... Complete Laboratory Tests 10/15/18 06:25: Sodium Level 140, Potassium Level 4.1, Chloride Level 105, Carbon Dioxide Level 27, Anion Gap 8, Blood Urea Nitrogen 15, Creatinine 1.1, Estimat Glomerular Filtration Rate > 60, Glucose Level 111H, Calcium Level 9.1 Current Medications Medications (Trade) Dose Ordered Sig/Brenda Route PRN Reason Start Time Stop Time Status Last Admin Dose Admin Acetaminophen (Tylenol) 650 mg Q6H PRN ORAL Mild Pain/Temp > 100.5 10/12/18 23:30 11/11/18 23:29 Acetaminophen/ Hydrocodone Bitart ([place] 5/325) 1 tab Q6H PRN ORAL Severe Pain (Pain Scale 7-10) 10/12/18 23:30 10/19/18 23:29 Albuterol/ Ipratropium (Albuterol/ Ipratropium) 3 ml Q6HRT HHN 10/13/18 13:00 10/18/18 12:59 Atorvastatin Calcium (Lipitor) 40 mg BEDTIME ORAL 10/13/18 21:00 11/12/18 20:59 10/14/18 20:17 Levofloxacin 100 ml @ 100 mls/hr Q24H IVPB 10/13/18 14:00 10/20/18 13:59 10/15/18 13:23 Methylprednisolone Sodium Succinate (Solu-MEDROL) 40 mg EVERY 8 HOURS IVP 10/13/18 14:00 11/12/18 13:59 10/15/18 13:23 Promethazine HCl/ Codeine (Phenergan with Codeine) 5 ml Q4H PRN ORAL For Cough 10/13/18 12:00 11/12/18 11:59 Rivaroxaban (Xarelto) 15 mg BID ORAL 10/13/18 18:30 11/03/18 18:29 10/15/18 08:16 Rivaroxaban (Xarelto) 20 mg DAILY ORAL 11/04/18 09:00 01/27/19 08:59 Theophylline (Selvin-Dur) 100 mg EVERY 12 HOURS ORAL 10/13/18 21:00 11/12/18 20:59 10/15/18 08:17 Jo-Ann Roberts MD Oct 15, 2018 14:24
[2018-10-15 16:00] VITALS: BP 126/88
--- NOTE | 2018-10-15 16:49 | NUR ---
CASE MANAGEMENT: REVIEW SI: ASTHMA EXACERBATION . ACUTE DVT T 98.4 HR 82 RR 18 BP 148/92 SAT 95% ROOM AIR H/H 13.5/38.3 IS: XARELTO PO QD LIPITOR PO QHS THEOPHYLLINE PO Q12HR SOLU MEDROL IV Q8HR LEVOFLOXACIN PO Q24HR ALBUTEROL HHN Q6HR MED/SURG STATUS DCP: PATIENT IS FROM HOME. PATIENT REFERRED TO REHAB [facility]ENTER
--- NOTE | 2018-10-15 16:52 | NUR ---
CASE MANAGEMENT: DCPNOTE UPON DISCHARGE PATIENT WILL TRANSFER TO [facility] [phone]# 11B PATIENT IN AGREEMENT TO TRANSFER TO THIS FACILITY TRANSPORTATION VIA [facility] [id number] ETA 18:30
[2018-10-15] MEDS ORDERED: Tubing IV Secondary IV ONE (16:58)
[2018-10-15] MEDS ORDERED: NS 500ML ONE (16:58)
[2018-10-15] MEDS ORDERED: MEDROL DOSEPAK4 MG ORAL (17:44)
[2018-10-15] MEDS ORDERED: LEVAQUIN500 MG ORAL (17:44)
[2018-10-15] MEDS ORDERED: THEOPHYLLINE A100 MG ORAL (17:44)
[2018-10-15] MEDS ORDERED: DUONEB 0.5-3(2.53 ML HHN (17:44)
[2018-10-15] MEDS ORDERED: ACETAMINOPHEN325 M1 ORAL (17:44)
[2018-10-15] MEDS ORDERED: NORCO 5-325 TA1 EACH ORAL (17:44)
[2018-10-15] MEDS ORDERED: LIPITOR20 MG ORAL (17:44)
[2018-10-15] MEDS ORDERED: XARELTO15 MG ORAL (17:44)
--- NOTE | 2018-10-15 17:46 | Internal Med Progress Note ---
Subjective Date of Service: Oct 15, 2018 Physician Name Maury Hart Attending Physician Paras Cruz MD Current Medications Medications (Trade) Dose Ordered Sig/Brenda Route PRN Reason Start Time Stop Time Status Last Admin Dose Admin Acetaminophen (Tylenol) 650 mg Q6H PRN ORAL Mild Pain/Temp > 100.5 10/12/18 23:30 11/11/18 23:29 Acetaminophen/ Hydrocodone Bitart ([place] 5/325) 1 tab Q6H PRN ORAL Severe Pain (Pain Scale 7-10) 10/12/18 23:30 10/19/18 23:29 Albuterol/ Ipratropium (Albuterol/ Ipratropium) 3 ml Q6HRT HHN 10/13/18 13:00 10/18/18 12:59 Atorvastatin Calcium (Lipitor) 40 mg BEDTIME ORAL 10/13/18 21:00 11/12/18 20:59 10/14/18 20:17 Levofloxacin 100 ml @ 100 mls/hr Q24H IVPB 10/13/18 14:00 10/20/18 13:59 10/15/18 13:23 Methylprednisolone Sodium Succinate (Solu-MEDROL) 40 mg EVERY 8 HOURS IVP 10/13/18 14:00 11/12/18 13:59 10/15/18 13:23 Promethazine HCl/ Codeine (Phenergan with Codeine) 5 ml Q4H PRN ORAL For Cough 10/13/18 12:00 11/12/18 11:59 Rivaroxaban (Xarelto) 15 mg BID ORAL 10/13/18 18:30 11/03/18 18:29 10/15/18 08:16 Rivaroxaban (Xarelto) 20 mg DAILY ORAL 11/04/18 09:00 01/27/19 08:59 Theophylline (Selvin-Dur) 100 mg EVERY 12 HOURS ORAL 10/13/18 21:00 11/12/18 20:59 10/15/18 08:17 Allergies: Coded Allergies: NO KNOWN ALLERGIES (Verified Allergy, Unknown, 10/12/18) Subjective 68 YO M admitted with right leg pain. Now acute DVT. Cover for Usha Zarate-Dr Cruz. Objective Last Vital Signs Date Time Temp Pulse Resp B/P (MAP) Pulse Ox O2 Delivery O2 Flow Rate FiO2 10/15/18 13:01 Room Air 21 10/15/18 12:00 98.4 82 18 148/92 (110) 95 Laboratory Tests Test 10/15/18 06:25 Sodium Level 140 MMOL/L (136-145) Potassium Level 4.1 MMOL/L (3.5-5.1) Chloride Level 105 MMOL/L (98-107) Carbon Dioxide Level 27 MMOL/L (21-32) Anion Gap 8 mmol/L (5-15) Blood Urea Nitrogen 15 mg/dL (7-18) Creatinine 1.1 MG/DL (0.55-1.30) Estimat Glomerular Filtration Rate > 60 mL/min (>60) Glucose Level 111 MG/DL (74-106) H Calcium Level 9.1 MG/DL (8.5-10.1) Microbiology Date/Time Source Procedure Growth Status 10/13/18 15:55 Nasal Nares Left MRSA Culture - Final NO METHICILLIN RESISTANT STAPH AUREUS... Complete 10/13/18 15:55 Rectum VRE Culture - Final NO VANCOMYCIN RESISTANT ENTEROCOCCUS ... Complete Intake and Output 10/14/18 10/15/18 18:59 06:59 Intake Total 1255 ml 200 ml Balance 1255 ml 200 ml Intake Oral 1255 ml 100 ml IV Total 100 ml # Voids 3 Objective PHYSICAL EXAMINATION: GENERAL: The patient is well-developed and well-nourished -Portuguese male, in no apparent distress. HEENT: Eyes, pupils are equal and responsive to light and accommodation. Extraocular movements are intact. NECK: Supple without lymphadenopathy. CHEST: Lungs are clear to auscultation bilaterally without wheezes or rales. CARDIOVASCULAR: Regular rhythm and rate. S1 and S2 are normal without murmurs, rubs, or gallops. ABDOMEN: Soft, nontender, and nondistended with positive bowel sounds. No evidence of hepatosplenomegaly. Currently, no rebound or guarding noted. EXTREMITIES: Right lower extremity is swollen when compared to left. There is no erythema noted. NEUROLOGIC: Cranial nerves II to XII are grossly intact without focal deficits. Motor strength is 5/5 bilaterally. Deep tendon reflexes are 2+ plantar. Assessment/Plan Problem List: (1) Prostate cancer Assessment & Plan: S/P radiation tx (2) Leg pain, right (3) Acute thromboembolism of deep veins of right calf Assessment & Plan: D/C lovenox; Continue xarelto (4) Acute asthma exacerbation Assessment & Plan: See pulmonary note. (5) Acute bronchitis Assessment & Plan: Continue levaquin per pulmonary Assessment/Plan Discharge to Rehab on [address] today Maury Hart MD Oct 15, 2018 17:46
--- NOTE | 2018-10-15 17:54 | NUR ---
NURSE NOTES: Received order to transfer patient to SNF. RN called at [facility] to give report. s/w Nubia RN. CM arranged transportation to [facility] at 18:30. IV removed prior to d/c. pt is aware and agreed to d/c plan, pt notified sister and given information of the facility. i will f/u as needed.
--- NOTE | 2018-10-15 20:18 | NUR ---
HAND-OFF: Report given to candy PATTON. pt in stable condition. Also given report to [employer], belongings given to them. pt left the floor with no signs of distress or other issues at this time.
--- NOTE | 2018-10-15 22:52 | General Progress Note ---
Assessment/Plan Status: stable Assessment/Plan anxiety do insomnia -ativan prn -ambien prn Subjective Neurologic/Psychiatric: Reports: anxiety, emotional problems Allergies: Coded Allergies: NO KNOWN ALLERGIES (Verified Allergy, Unknown, 10/12/18) Objective Last 24 Hour Vital Signs Date Time Temp Pulse Resp B/P (MAP) Pulse Ox O2 Delivery O2 Flow Rate FiO2 10/15/18 20:09 Room Air 21 10/15/18 20:09 Room Air 21 10/15/18 16:00 97.7 101 18 126/88 (101) 96 10/15/18 13:01 Room Air 21 10/15/18 13:01 Room Air 21 10/15/18 12:00 98.4 82 18 148/92 (110) 95 10/15/18 09:00 Room Air 10/15/18 08:00 97.7 93 18 133/81 (98) 97 10/15/18 07:47 84 20 95 Room Air 21 10/15/18 07:47 Room Air 21 10/15/18 04:00 98.4 81 19 136/84 (101) 95 10/15/18 00:07 Room Air 21 10/15/18 00:07 Room Air 21 10/15/18 00:00 97.7 84 18 113/71 (85) 95 Intake and Output 10/14/18 10/15/18 19:00 07:00 Intake Total 1355 ml 100 ml Balance 1355 ml 100 ml Intake Oral 1255 ml 100 ml IV Total 100 ml # Voids 3 Laboratory Tests 10/15/18 06:25: Sodium Level 140, Potassium Level 4.1, Chloride Level 105, Carbon Dioxide Level 27, Anion Gap 8, Blood Urea Nitrogen 15, Creatinine 1.1, Estimat Glomerular Filtration Rate > 60, Glucose Level 111H, Calcium Level 9.1 Height (Feet): 5 Height (Inches): 10.00 Weight (Pounds): 152 General Appearance: no apparent distress, alert, thin Neurologic: oriented x 3, responsive, depressed affect Naty Otero MD Oct 15, 2018 22:52
--- NOTE | 2018-10-15 22:53 | General Progress Note ---
Assessment/Plan Status: stable, progressing Assessment/Plan anxiety do insomnia -ativan prn -ambien prn Subjective Date patient seen: Oct 14, 2018 Neurologic/Psychiatric: Reports: anxiety, depressed, emotional problems Allergies: Coded Allergies: NO KNOWN ALLERGIES (Verified Allergy, Unknown, 10/12/18) Objective Last 24 Hour Vital Signs Date Time Temp Pulse Resp B/P (MAP) Pulse Ox O2 Delivery O2 Flow Rate FiO2 10/15/18 20:09 Room Air 21 10/15/18 20:09 Room Air 21 10/15/18 16:00 97.7 101 18 126/88 (101) 96 10/15/18 13:01 Room Air 21 10/15/18 13:01 Room Air 21 10/15/18 12:00 98.4 82 18 148/92 (110) 95 10/15/18 09:00 Room Air 10/15/18 08:00 97.7 93 18 133/81 (98) 97 10/15/18 07:47 84 20 95 Room Air 21 10/15/18 07:47 Room Air 21 10/15/18 04:00 98.4 81 19 136/84 (101) 95 10/15/18 00:07 Room Air 21 10/15/18 00:07 Room Air 21 10/15/18 00:00 97.7 84 18 113/71 (85) 95 Intake and Output 10/14/18 10/15/18 19:00 07:00 Intake Total 1355 ml 100 ml Balance 1355 ml 100 ml Intake Oral 1255 ml 100 ml IV Total 100 ml # Voids 3 Laboratory Tests 10/15/18 06:25: Sodium Level 140, Potassium Level 4.1, Chloride Level 105, Carbon Dioxide Level 27, Anion Gap 8, Blood Urea Nitrogen 15, Creatinine 1.1, Estimat Glomerular Filtration Rate > 60, Glucose Level 111H, Calcium Level 9.1 Height (Feet): 5 Height (Inches): 10.00 Weight (Pounds): 152 General Appearance: no apparent distress, alert Neurologic: oriented x 3, responsive Naty Otero MD Oct 15, 2018 22:53
--- NOTE | 2018-10-16 14:05 | Discharge Summary ---
Discharge Summary Discharge Summary _ DATE OF ADMISSION: 10/12/2018 DATE OF DISCHARGE: 10/15/2018 DISCHARGED BY: Dr. Paras Cruz CONSULTANTS: Dr. Jo-Ann Otero BRIEF HOSPITAL COURSE: Patient is a 68-year-old -[place] male, who presented with right lower extremity pain and swelling. Symptoms started on 10/10/2018. Patient stated he felt like he had a cramp on the right calf. He stated the pain continued. The patient noticed increased pain and swelling of the right lower extremity. He initially presented to [facility] emergency room. The patient was found to have acute deep venous thrombosis of the right popliteal to right posterior tibial vein. Patient was then transferred to [facility] for insurance purposes. He has medical history significant for asthma and history of prostate CA, status post radiation therapy. Patient was started on Lovenox. He has history of asthma and was given albuterol. Seen by car shagger. He was started on short course of levofloxacin and Solu-Medrol. Patient had anxiety and insomnia. He was given Ambien and as needed Ativan. Lovenox was discontinued and was started on Xarelto. He was given PT mobility. Patient was eventually discharged to [facility]. FINAL DIAGNOSES: Acute DVT of the right leg Acute asthma exacerbation Acute bronchitis Prostate CA status post radiation therapy Anxiety disorder Insomnia DISPOSITION: Patient was discharged to a SNF. DISCHARGE MEDICATIONS: Refer to Discharge Medication List. I have been assigned to dictate discharge summary on this account, and I was not involved in the patient's management. Emmy Reyes NP Oct 16, 2018 14:05
[2018-11-04] MEDS ORDERED: Xarelto 10mg tab ORAL SCH (09:00)
== END 2018-10-15 20:35 | disposition short-term general hospital (02) | DRG 300 ==
LOC: 3E 21:32
DX: I82.431 Acute embolism and thrombosis of right popliteal vein (principal); J45.901 Unspecified asthma with (acute) exacerbation; I82.441 Acute embolism and thrombosis of right tibial vein; J20.9 Acute bronchitis, unspecified; Z85.46 Personal history of malignant neoplasm of prostate; Z92.3 Personal history of irradiation; F41.9 Anxiety disorder, unspecified; G47.00 Insomnia, unspecified; Z59.0 Homelessness
CPT/HCPCS: 36415; 80048; 80053; 83735; 84100; 85007; 85025; 85610; 85730; 87081; 93970; 94664; J7620

== ENCOUNTER 2018-11-30 14:05 | Emergency (ER) | payer MEDICARE, MEDICAID ==
[~2018-11-30] VITALS: Ht 177.8 cm; Wt 72.6 kg
[~2018-11-30 14:05] MED LIST: ACETAMINOPHEN325 M1 ORAL; DUONEB 0.5-3(2.53 ML HHN; LEVAQUIN500 MG ORAL; LIPITOR20 MG ORAL; MEDROL DOSEPAK4 MG ORAL; NORCO 5-325 TA1 EACH ORAL; THEOPHYLLINE A100 MG ORAL; XARELTO15 MG ORAL
--- NOTE | 2018-11-30 14:17 | NUR ---
ED Nurse Note: Pt came into the Er w/ complaints of right lower leg edema and pain x 2 weeks. Pt is complaning of 5/10 pain. Non radiating. Pt was diagnosed w/ DVT on October and was put on blood thinners. Pt was sent by PCP for further eval to the ER.
[2018-11-30 14:19] VITALS: BP 140/82
--- NOTE | 2018-11-30 15:10 | Emergency Room Report ---
History of Present Illness General Chief Complaint: General Complaint Source: Patient, Medical Record Present Illness HPI This is a very pleasant 68-year-old male who was recently diagnosed with a right DVT. He was in the hospital here and was on a blood thinner. For some reason, he was taken off the blood thinner. He states her sore had gone down but then it came back again for the last 2 weeks. He denies any shortness of breath. He states he has some pain on ambulation. He denies any numbness or tingling. He currently is not on any medication for blood. Allergies: Coded Allergies: NO KNOWN ALLERGIES (Verified Allergy, Unknown, 10/12/18) Patient History Past Medical History: asthma Past Surgical History: none Pertinent Family History: none Nursing Documentation-[facility] Past Medical History: No History, Except For Hx Cardiac Problems: No Hx Asthma: Yes Hx Cancer: Yes Hx Gastrointestinal Problems: No Hx Neurological Problems: No Hx Memory Loss: Yes - short term memory loss Review of Systems All Other Systems: negative except mentioned in HPI Physical Exam Vital Signs Date Time Temp Pulse Resp B/P (MAP) Pulse Ox O2 Delivery O2 Flow Rate FiO2 11/30/18 14:13 97.9 103 18 145/81 95 Room Air 11/30/18 14:19 98 General Appearance: well appearing, no apparent distress Head: normocephalic, atraumatic ENT: hearing grossly normal, normal voice Neck: full range of motion, supple Respiratory: no respiratory distress, speaking full sentences Musculoskeletal: calf tenderness Neurologic: alert, normal gait Psychiatric: mood/affect normal Skin: no rash Medical Decision Making Diagnostic Impression: Primary Impression: DVT (deep venous thrombosis) ER Course Patient presented with significant complexity of risk requiring multiple bedside evaluations. I was particularly very concerned about worsening renal failure, acute coronary syndrome, acute pulmonary edema, acute congestive heart failure, medication side effect, pulmonary embolism, pneumonia, sepsis. The patient was given a dose of 40 mg of Lasix. He has had very good diuresis. He has diuresed approximately 700 mL. The patient is not tachypneic, tachycardic, hypoxic. His oxygen saturation is 98% on room air. He states that he feels much better. I advised the patient that I would recommend him increasing his Lasix to 20 mg twice a day for the next 3 days. He should follow-up with his primary care physician as an outpatient the next 48 hours. I've also noted and learned that the patient has had increased fluid intake as well and I advised the patient to restrict his fluid intake. Laboratory Tests Test 11/30/18 15:00 White Blood Count 3.8 K/UL (4.8-10.8) L Red Blood Count 4.45 M/UL (4.70-6.10) L Hemoglobin 13.3 G/DL (14.2-18.0) L Hematocrit 39.7 % (42.0-52.0) L Mean Corpuscular Volume 89 FL (80-99) Mean Corpuscular Hemoglobin 30.0 PG (27.0-31.0) Mean Corpuscular Hemoglobin Concent 33.6 G/DL (32.0-36.0) Red Cell Distribution Width 11.4 % (11.6-14.8) L Platelet Count 375 K/UL (150-450) Mean Platelet Volume 5.8 FL (6.5-10.1) L Neutrophils (%) (Auto) 45.4 % (45.0-75.0) Lymphocytes (%) (Auto) 35.6 % (20.0-45.0) Monocytes (%) (Auto) 11.7 % (1.0-10.0) H Eosinophils (%) (Auto) 5.1 % (0.0-3.0) H Basophils (%) (Auto) 2.2 % (0.0-2.0) H Prothrombin Time 10.8 SEC (9.30-11.50) Prothrombin Time INR 1.0 (0.9-1.1) PTT 30 SEC (23-33) Sodium Level 142 MMOL/L (136-145) Potassium Level 3.7 MMOL/L (3.5-5.1) Chloride Level 105 MMOL/L (98-107) Carbon Dioxide Level 25 MMOL/L (21-32) Anion Gap 12 mmol/L (5-15) Blood Urea Nitrogen 8 mg/dL (7-18) Creatinine 1.1 MG/DL (0.55-1.30) Estimate Glomerular Filtration Rate > 60 mL/min (>60) Glucose Level 107 MG/DL (74-106) H Calcium Level 9.7 MG/DL (8.5-10.1) Total Bilirubin 0.3 MG/DL (0.2-1.0) Aspartate Amino Transferase (AST) 20 U/L (15-37) Alanine Aminotransferase (ALT) 16 U/L (12-78) Alkaline Phosphatase 90 U/L (46-116) Total Protein 7.6 G/DL (6.4-8.2) Albumin 3.7 G/DL (3.4-5.0) Globulin 3.9 g/dL Albumin/Globulin Ratio 0.9 (1.0-2.7) L Last Vital Signs Date Time Temp Pulse Resp B/P (MAP) Pulse Ox O2 Delivery O2 Flow Rate FiO2 11/30/18 14:19 97.9 85 20 140/82 98 Room Air 11/30/18 14:19 98 Disposition: HOME, SELF-CARE Condition: Stable Scripts Rivaroxaban (XARELTO) 15 Mg Tablet 15 MG ORAL BID for 21 Days, #42 MG 0 Refills Prov: RAYMOND GEORGE 11/30/18 Patient Instructions: Deep Vein Thrombosis RAYMOND GEORGE Nov 30, 2018 15:10
[2018-11-30 15:35] LABS: BASOPHILS % (AUTO) 2.2 % (0.0-2.0); EOSINOPHILS % (AUTO) 5.1 % (0.0-3.0); HEMATOCRIT 39.7 % (42.0-52.0); HEMOGLOBIN 13.3 G/DL (14.2-18.0); LYMPHOCYTES % (AUTO) 35.6 % (20.0-45.0); MEAN CORPUSCULAR VOLUME 89 FL (80-99); MONOCYTES % (AUTO) 11.7 % (1.0-10.0); NEUTROPHILS % (AUTO) 45.4 % (45.0-75.0); PLATELET COUNT 375 K/UL (150-450); RED BLOOD COUNT 4.45 M/UL (4.70-6.10); RED CELL DISTRIBUTION WIDTH 11.4 % (11.6-14.8); WHITE BLOOD COUNT 3.8 K/UL (4.8-10.8)
[2018-11-30 16:05] LABS: ANION GAP 12 mmol/L (5-15); BLOOD UREA NITROGEN 8 mg/dL (7-18); CALCIUM 9.7 MG/DL (8.5-10.1); CARBON DIOXIDE 25 MMOL/L (21-32); CHLORIDE 105 MMOL/L (98-107); CREATININE 1.1 MG/DL (0.55-1.30); POTASSIUM 3.7 MMOL/L (3.5-5.1); SODIUM 142 MMOL/L (136-145)
[2018-11-30 16:10] LABS: ALANINE AMINOTRANSFERASE 16 U/L (12-78); ALBUMIN 3.7 G/DL (3.4-5.0); ALBUMIN/GLOBULIN RATIO 0.9 (1.0-2.7); ALKALINE PHOSPHATASE 90 U/L (46-116); ASPARTATE AMINO TRANSFERASE 20 U/L (15-37); BILIRUBIN,TOTAL 0.3 MG/DL (0.2-1.0)
[2018-11-30] MEDS ORDERED: XARELTO15 MG ORAL (16:30)
[2018-11-30 16:39] VITALS: BP 135/77
[2018-11-30] MEDS ORDERED: Xarelto 15mg tab ORAL ONE (16:45)
[2018-11-30 17:05] VITALS: BP 130/77
--- NOTE | 2018-11-30 17:05 | NUR ---
ER DISCHARGE NOTE: Patient is cleared to be discharged per ERMD, pt is aox4, on room air, with stable vital signs. pt was given dc and prescription instructions, pt was able to verbalize understanding, pt id band removed without complications. pt is able to ambulate with steady gait. pt took all belongings.
== END 2018-11-30 17:06 | disposition home or self-care (01) ==
LOC: EMR 14:48
DX: I82.401 Acute embolism and thrombosis of unspecified deep veins of right lower extremity (principal); J45.909 Unspecified asthma, uncomplicated
CPT/HCPCS: 36415; 80053; 85025; 85610; 85730; 99283